=== PATIENT | male | born 1975 | race Caucasian/White ===

== ENCOUNTER → 2017-03-17 17:51 | Emergency (ER) | payer SELFPAY ==
[~2017-03-17 17:51] MED LIST: Famotidine IV* 10 MG/ML 2 ML (20 mg) IV ONE; Famotidine TAB* 20 MG ONE; Famotidine TAB* 20 MG PO ONE; NS 0.9% 1000 ML* 1,000 ML IV ONE; methylPREDNISolone 125 MG* 2 ML VIAL IV ONE; predniSONE TAB* 20 MG ONE; predniSONE TAB* 20 MG PO SCH
[2017-03-17 22:43] VITALS: BP 143/90
--- NOTE | 2017-03-17 23:11 | ED ---
Ac Sutherland Nikita, scribed for Gary Archuleta MD on 03/17/17 at 1834 . Allergic Reaction/Systemic - HPI Summary HPI Summary: This patient is a 41 year old M presenting to ED with a chief complaint of allergic reaction s/p bee stings at 1700. The CC is described as at the R abdomen and R ear. The patient rates the pain 1/10 in severity. Symptoms aggravated by nothing. Symptoms alleviated by nothing. Patient reports pain from sting, pruritic hands and feet, hives, feeling tight around my ears, and feeling hot at my lips and my eyes. Patient denies SOB. Pt took Benadryl ( 62.5 mg). - History of Current Complaint Chief Complaint: EDAllergicReaction Time Seen by Provider: 03/17/17 18:26 Hx Obtained From: Patient Onset/Duration: Sudden Onset, Started hours ago, Resolved Timing: Constant Severity Initially: Mild Severity Currently: Mild Pain Intensity: 1 Pain Scale Used: 0-10 Numeric Location: Discrete @ - R ear and R abdomen Character: Swelling, Pruritus - hands and feet, Pain - at stings, Hives Aggravating Factor(s): Nothing Alleviating Factor(s): Nothing - Patient reports pain from sting, pruritic hands and feet, hives, feeling tight around my ears, and feeling hot at my lips and my eyes. Patient denies SOB. - Allergies/Home Medications Allergies/Adverse Reactions: Allergies Allergy/AdvReac Type Severity Reaction Status Date / Time No Known Allergies Allergy Verified 03/17/17 18:12 PMH/Surg Hx/FS Hx/Imm Hx Endocrine/Hematology History: Denies: Hx Diabetes Cardiovascular History: Reports: Hx Hypertension Denies: Hx Coronary Artery Disease Infectious Disease History: No Infectious Disease History: Denies: Traveled Outside the [place] in Last 30 Days - Family History Known Family History: Positive: Diabetes Negative: Cardiac Disease, Hypertension - Social History Alcohol Use: Daily Alcohol Amount: a couple of drinks a day (beer or wine) Hx Substance Use: No Hx Tobacco Use: No Review of Systems Positive: Other - feeling hot around his eyes Positive: Other - pain at bee sting at R ear; feeling tight around my ears, and feeling hot at my lips Positive: Other - pain at bee sting at R abdomen Positive: Other - pruritic hands and feet, hives All Other Systems Reviewed And Are Negative: Yes Physical Exam Triage Information Reviewed: Yes Vital Signs On Initial Exam: Initial Vitals Temp Pulse Resp BP Pulse Ox 98.7 F 95 20 196/99 99 03/17/17 17:58 03/17/17 17:58 03/17/17 17:58 03/17/17 17:58 03/17/17 17:58 Vital Signs Reviewed: Yes Appearance: Positive: Well-Appearing, No Pain Distress Skin: Positive: Warm, Skin Color Reflects Adequate Perfusion, Dry Head/Face: Positive: Normal Head/Face Inspection Eyes: Positive: EOMI, CELENA ENT: Positive: Pharynx normal, Other - R side swelling of ear and face Neck: Positive: Supple, Nontender Respiratory/Lung Sounds: Positive: Clear to Auscultation, Breath Sounds Present Cardiovascular: Positive: RRR Abdomen Description: Positive: Nontender, Soft Bowel Sounds: Positive: Present Musculoskeletal: Positive: Normal, Strength/ROM Intact Neurological: Positive: Normal, Sensory/Motor Intact, Alert, Oriented to Person Place, Time Psychiatric: Positive: Affect/Mood Appropriate Diagnostics - Vital Signs Vital Signs Temp Pulse Resp BP Pulse Ox 03/17/17 17:58 98.7 F 95 20 196/99 99 - Laboratory Lab Statement: Any lab studies that have been ordered have been reviewed, and results considered in the medical decision making process. Re-Evaluation - Re-Evaluation First Eval Re-Evaluation Time: 21:40 Change: Improved Comment: Pt feels better. Discussed discharge plan. Allergic Reaction Course/Dx - Course Assessment/Plan: This patient is a 41 year old M presenting to ED with a chief complaint of allergic reaction s/p bee stings at 1700. The CC is described as at the R abdomen and R ear. The patient rates the pain 1/10 in severity. Symptoms aggravated by nothing. Symptoms alleviated by nothing. Patient reports pain from sting, pruritic hands and feet, hives, feeling tight around my ears , and feeling hot at my lips and my eyes. Patient denies SOB. Pt took Benadryl (62.5 mg). In the ED course, pt was given fluids and allergy medicaiton. Medications reviewed. BP noted and advised to follow up with PCP. Pt will be discharged. Pt is agreeable with this plan. IMPROVED IN ED. NO CRITICAL CARE TIME. - Diagnoses Provider Diagnoses: Allergic reaction to bee sting Discharge - Discharge Plan Condition: Stable Disposition: HOME Prescriptions: Epinephrine [Epipen 2-Arturo] 0.3 mg IM ONCE PRN #1 inj PRN Reason: Allergy Symptoms Famotidine TAB* [Pepcid 20 MG TAB*] 20 mg PO BID PRN #8 tab PRN Reason: Allergy Symptoms predniSONE TAB* [Deltasone TAB*] 40 mg PO DAILY PRN #8 tab PRN Reason: Allergy Symptoms Patient Education Materials: General Allergic Reaction (ED) Referrals: [facility] [place] [facility] [Outside] No Primary Care Phys,NOPCP [Primary Care Provider] - Additional Instructions: FOLLOW UP WITH YOUR DOCTOR. TAKE BENADRYL 50MG EVERY 6 HOURS NEEDED. TAKE PEPCID 20MG TWICE A DAY NEEDED. TAKE THE PREDNISONE DIRECTED NEEDED. RETURN TO THE EMERGENCY DEPARTMENT FOR ANY WORSENING OF YOUR CONDITION OR QUESTIONS OR CONCERNS. The documentation as recorded by the Ac horton Nikita accurately reflects the service I personally performed and the decisions made by me, Gary Archuleat MD.
== END | disposition home or self-care (01) ==
LOC: ED 17:51
DX: T63.441A Toxic effect of venom of bees, accidental (unintentional), initial encounter (principal); Y92.9 Unspecified place or not applicable; I10 Essential (primary) hypertension
CPT/HCPCS: 96360; 96374; 96375; 99283; A9270-GY; J2930; J7512